=== PATIENT | male | born 1970 | race Two or more races ===

== ENCOUNTER 2020-10-13 23:41 | Emergency (ER) | payer OTHER ==
[~2020-10-13] VITALS: Ht 162.6 cm; Wt 86.2 kg
[2020-10-13 23:41] VITALS: BP 106/80
--- NOTE | 2020-10-13 23:50 | NUR ---
[facility] AT BEDSIDE
--- NOTE | 2020-10-14 00:12 | NUR ---
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 PT AMBULATORY W/ STEADY GAIT. Patient discharged in stable condition. Written and verbal after care instructions given. Patient verbalizes understanding of instruction.
== END 2020-10-14 00:13 | disposition home or self-care (01) ==
LOC: ER 23:43
DX: S05.12XA Contusion of eyeball and orbital tissues, left eye, initial encounter (principal); Z02.89 Encounter for other administrative examinations; X58.XXXA Exposure to other specified factors, initial encounter; Y93.89 Activity, other specified; Y92.89 Other specified places as the place of occurrence of the external cause; Y99.8 Other external cause status